=== PATIENT | male | born 1990 | race African-American/Black ===

== ENCOUNTER 2019-01-18 21:20 | Emergency (ER) | payer BC ==
[~2019-01-18] VITALS: Ht 177.8 cm; Wt 82.0 kg
[2019-01-18 23:02] VITALS: BP 100/84
== END 2019-01-18 23:58 | disposition home or self-care (01) ==
LOC: ER 23:53
DX: R07.89 Other chest pain (principal); F41.9 Anxiety disorder, unspecified; R01.1 Cardiac murmur, unspecified
CPT/HCPCS: 71045; 93005; 99283